=== PATIENT | male | born 1940 | race Caucasian/White ===

== ENCOUNTER → 2019-01-18 | Outpatient (CLI) | payer MEDICARE ==
[2015-07-18 12:55] VITALS: BP 138/75
[~2019-01-18] MED LIST: AMLO5TAB10 PO; ASPI1TAB88 PO; ASPI325T11 PO; ATOR10TA60 PO; LOSA100T14 PO; MELO15TA23 PO; METO25TA4 PO; REGADENOSON 0.4 MG/5 ML DISP.SYRIN. IV ONE
--- NOTE | 2019-01-18 13:48 | RAD ---
MR#: [id number] Date of Study: 01/18/2019 Ordering Physician: YOLIE GONZALEZ, Referring Physician: ZINA CROCKER Tech: SELENE Lucero, ARRT (R) (N) APPROVED REPORT Test Type: Pharmacological Stress Nurse/Tech: Rissa Stack RN Test Indications: CAD Cardiac History: Hypertension, Diabetes, CABG x5, [place] 2016,smoker Medications: See Electronic Medical Record Medical History: See Electronic Medical Record Resting ECG: SB Resting Heart Rate: 42 bpm Resting Blood Pressure: 135/51mmHg Pretest Chest Pain: No chest pain Nurse/Tech Notes S1,S2 and lungs are diminished. Consent: The procedure was explained to the patient in lay terms. Informed consent was witnessed. Joe eout was entered into archify. History and Stress Test performed by RT Shereen (R) (N) Pharm. Details Pharmacologic stress testing was performed using 0.4mg per 5ml of regadenoson given intravenously ove r 7-10 seconds. Stress Symptoms No chest pain or symptoms. POST EXERCISE Reason for Termination: Infusion complete Target HR: No Max HR: 67 bpm Max Blood Pressure: 124/39mmHg Blood Pressure response to exercise: Normal blood pressure response during stress. Heart Rate response to exercise: WNL Chest Pain: No. Arrhythmia: No. INTERPRETATION Stress EKG Conclusion: The resting EKG shows a sinus bradycardia and nonspecific ST-T wave changes. The stress EKG shows no significant changes from baseline. No EKG evidence of stressed induced ischemia. Imaging Protocol IMAGE PROTOCOL: Rest Tc-99m/stress Tc-99m 1 day Rest: Stress: Viability: Radiopharm.Tc99m PtanbtnqqCy87a Sestamibi Dose9.9mCi 31mCi Img Date 01/18/2019 01/18/2019 Inj-Img Ywzk02shj. 60min. Rest Admin Site:IV - Right AntecubitalAdministrator:RT Shereen (Kaley)(N) Stress Admin Site: IV - Right AntecubitalAdministrator: RT Shereen (Kaley)(N) STRESS DATA End Diast. Vol.130.0mlLVEDV index BSA62.0ml End Syst. Vol.51.0mlLVESV index BSA24.0ml Myocardial Qebu239.0gEject. Gqkikroa75.0% Stress Scores Regional WT0.00Summed WT15.00 Regional WM0.00Summed WM9.00 LV Perfusion The stress scans show slight anterior septal wall thinning. The rest scans show slight anterior septal wall thinning. Nuclear imaging shows no significant reversible ischemia. Nuclear imaging shows a slight fixed area of anterior septal wall thinning possibly due to a technica l artifact. Wall Motion Ventricular systolic function is intact with no regional wall motion abnormalities and an ejection fr action of 63%. LV Perf. Quant 17 Seg. SSS5.00 17 Seg. SRS4.00 17 Seg. SDS2.00 Stress Defect Extent (% LAD)0.00Rest Defect Extent (% LAD)5.00Rev. Defect Extent (% LAD)0.00 Stress Defect Extent (% LCX) 31.30Rest Defect Extent (% LCX)30.00Rev. Defect Extent (% LCX)7.50 Stress Defect Extent (% RCA)0.00Rest Defect Extent (% RCA)0.00Rev. Defect Extent (% RCA)0.00 Stress Defect Extent (% AGUSTINA)7.40Rest Defect Extent (% AGUSTINA)7.80Rev. Defect Extent (% AGUSTINA)3.00 Conclusion 1. No EKG evidence of stressed induced ischemia. 2. Nuclear imaging shows no reversible ischemia. 3. Nuclear imaging during shows slight fixed anterior septal wall thinning. 4. Normal left ventricular systolic function with an ejection fraction of 63%. 5. Moderately low risk Lexiscan nuclear stress test. Signed by : Yunier Yee MD Electronically Approved : 01/18/2019 13:48:02
--- NOTE | 2019-01-25 09:47 | RAD ---
MR#: [id number] Date of Study: 01/18/2019 Ordering Physician: YOLIE GONZALEZ, Referring Physician: YOLIE GONZALEZ, Tech: Arvin Gonzalez MBA, RDMS, RVT, RDCS, RTR APPROVED REPORT Patient Location: OUT-PATIENT Indications pad Duplex Results A/PTransverseLongitudinal Proximal Aorta 2.2cm1.9cm Mid Aorta 2.6cm1.9cm Distal Aorta 1.9cm1.4cm Rt. Common Iliac Artery1.4cm Lt. Common Iliac Artery 1.4cm Findings Grossly the aorta is noted to have mild diffuse plaque and calcification. No obvious aneurysm is iden tified. Normal velocities are noted. Critical Notification Critical Value: No <Conclusion> No evidence of abdominal aortic aneurysm. Signed by : Yolie Gonzalez, Electronically Approved : 01/25/2019 09:47:34
--- NOTE | 2019-01-25 09:50 | RAD ---
MR#: [id number] Date of Study: 01/18/2019 Ordering Physician: YOLIE GONZALEZ, Referring Physician: YOLIE GONZALEZ, Tech: Arvin Gonzalez MBA, RDMS, RVT, RDCS, RTR APPROVED REPORT Patient Location: OUT-PATIENT Laterality:Bilateral Indications Dizziness and Vertigo Doppler Spectral Velocity Analysis Right Left pCCA 110/19 cm/spCCA 118/17 cm/s mCCA 93/14 cm/smCCA 80/15 cm/s dCCA 73/15 cm/sdCCA 75/17 cm/s Bulb 73/19 cm/sBulb 61/19 cm/s ECA 100/ cm/sECA 89/ cm/s pICA 67/18 cm/spICA 70/21 cm/s [place] 70/21 cm/smICA 71/15 cm/s dICA 78/25 cm/sdICA 87/23 cm/s Vert. 42/ cm/sVert. 50/ cm/s Subcl. 109/ cm/sSubcl. 96/ cm/s ICA/CCA 0.71ICA/CCA 0.74 Findings Grayscale images of the bilateral common carotid arteries, external and internal carotid vessels demo nstrate mild diffuse intimal hyperplasia with moderate calcific circumferential plaque. Based on spectral waveforms and color Doppler there is no obvious evidence of significant stenosis. O verall 0 to less than 50% stenosis based on velocity criteria. Vertebral velocities are within normal limits. Critical Notification Critical Value: No <Conclusion> No significant evidence of carotid occlusive disease bilaterally. Signed by : Yolie Gonzalez, Electronically Approved : 01/25/2019 09:50:39
== END | disposition home or self-care (01) ==
LOC: NM 07:51
PROVIDERS: ATTEND Internal Medicine Cardiovascular Disease
DX: I65.23 Occlusion and stenosis of bilateral carotid arteries (principal); I77.3 Arterial fibromuscular dysplasia; I70.0 Atherosclerosis of aorta; R00.1 Bradycardia, unspecified; I25.10 Atherosclerotic heart disease of native coronary artery without angina pectoris; I73.9 Peripheral vascular disease, unspecified; I10 Essential (primary) hypertension; E11.9 Type 2 diabetes mellitus without complications; I25.2 Old myocardial infarction; F17.290 Nicotine dependence, other tobacco product, uncomplicated; Z95.1 Presence of aortocoronary bypass graft; Z79.01 Long term (current) use of anticoagulants
CPT/HCPCS: 76770; 78452; 93017; 93880; A9500; J2785

== ENCOUNTER → 2019-01-19 | Outpatient (CLI) | payer MEDICARE ==
[2015-07-18 12:55] VITALS: BP 138/75
[~2019-01-19] MED LIST changes: -REGADENOSON 0.4 MG/5 ML DISP.SYRIN. IV ONE
[2019-01-19 09:37] LABS: ALBUMIN 3.6 g/dL (3.4-5.0); ALBUMIN/GLOBULIN RATIO 0.9 (1.0-1.7); CALCIUM 8.5 mg/dL (8.5-10.1); GFR 72.1; POTASSIUM 4.1 mmol/L (3.5-5.1); TOTAL BILIRUBIN 0.6 mg/dL (0.2-1.0); TOTAL PROTEIN 7.5 g/dL (6.4-8.2)
[2019-01-19 09:38] LABS: CHOLESTEROL/HDL RATIO 3.1
--- NOTE | 2019-01-19 11:29 | CARD ---
MR#: [id number] Date of Study: 01/19/2019 Ordering Physician: YOLIE GONZALEZ, Referring Physician: YOLIE GONZALEZ, Tech: Arabella Griffin APPROVED REPORT EXAM: Two-dimensional and M-mode echocardiogram with Doppler and color Doppler. Other Information Quality : AverageHR: 42bpm INDICATION Cardiac Disease: CAD Surgery/Intervention CABG: Date: 2015 RISK FACTORS Hypertension Smoking 2D DIMENSIONS Left Atrium(2D)4.5 (1.6-4.0cm)IVSd1.2 (0.7-1.1cm) Aortic Root(2D)3.4 (2.0-3.7cm)LVDd5.3 (3.9-5.9cm) LVOT Diameter2.2 (1.8-2.4cm)PWd1.1 (0.7-1.1cm) LVDs2.5 (2.5-4.0cm)FS (%) 53.2 % SV112.3 mlLVEF(%)83.9 (>50%) Aortic Valve AoV Peak Rayo.176.4cm/sAoV VTI40.2cm AO Peak GR.12.4mmHgLVOT Peak Rayo.109.7cm/s LVOT VTI 28.18cmAO Mean GR.7mmHg STU (VMAX)1.66bp5MAU (VTI)2.64cm2 Mitral Valve MV E Xyrpizoh17.6cm/sMV DECEL NMLA883cb MV A Skhztgzz08.5cm/sMV QUL02ql E/A Ratio1.9MVA (PHT)3.35cm2 TDI E/Lateral E'11.0E/Medial E'14.6 Pulmonary Valve PV Peak Qvhohbam55.9cm/sPV Peak Grad.3mmHg Tricuspid Valve TR P. Mcabrkvg889rd/sRAP DNQZICJL9iqRe TR Peak Gr.97qdPpVOUA79qzSi Pulmonary Vein S1 Fblyqwgp48.9cm/sD2 Eqlvuabh86.5cm/s PVa xxqurgat501qkam LEFT VENTRICLE The left ventricle is normal size. There is mild concentric left ventricular hypertrophy. The left ve ntricular systolic function is normal. The Ejection Fraction is 55-60%. There is normal LV segmental wall motion. The left ventricular diastolic function and filling is normal for age. RIGHT VENTRICLE The right ventricle is normal size. There is normal right ventricular wall thickness. The right ventr icular systolic function is normal. ATRIA The left atrium is borderline dilated. The right atrium is borderline dilated. The interatrial septum is intact with no evidence for an atrial septal defect or patent foramen ovale as noted on 2-D or Do ppler imaging. AORTIC VALVE The aortic valve is thickened but opens well. Doppler and Color Flow revealed no significant aortic r egurgitation. There is no significant aortic valvular stenosis. MITRAL VALVE The mitral valve is thickened but opens well. There is no evidence of mitral valve prolapse. There is no mitral valve stenosis. Doppler and Color-flow revealed trace mitral regurgitation. TRICUSPID VALVE The tricuspid valve is not well visualized. Doppler and Color Flow revealed trace tricuspid regurgita tion with an estimated PAP of 30 mmHg. There is no tricuspid valve stenosis. PULMONIC VALVE The pulmonic valve is not well visualized. Doppler and Color Flow revealed no pulmonic valvular regur gitation. GREAT VESSELS The aortic root is normal in size. The IVC is normal in size and collapses >50% with inspiration. PERICARDIAL EFFUSION There is no evidence of significant pericardial effusion. Critical Notification Critical Value: No <Conclusion> The left ventricular systolic function is normal. The Ejection Fraction is 55-60%. There is normal LV segmental wall motion. Trace mitral regurgitation. Trace tricuspid regurgitation with an estimated PAP of 30 mmHg. There is no evidence of significant pericardial effusion. Signed by : Steven Clark, Electronically Approved : 01/19/2019 11:29:07
== END | disposition home or self-care (01) ==
LOC: ECHO 08:50
PROVIDERS: ATTEND Internal Medicine Cardiovascular Disease
DX: I11.9 Hypertensive heart disease without heart failure (principal); I25.10 Atherosclerotic heart disease of native coronary artery without angina pectoris
CPT/HCPCS: 36415; 80053; 80061; 83721; 93306

== ENCOUNTER 2020-11-27 21:38 | Observation (INO) | payer BC, MEDICARE ==
[~2020-11-27] VITALS: Ht 177.8 cm; Wt 91.0 kg
[~2020-11-27 21:38] MED LIST changes: +AMLO-186 PO; -AMLO5TAB10 PO
--- NOTE | 2020-11-27 22:03 | PHYS DOC ---
Past Medical History Past Medical History: Hypertension, UTI Past Surgical History: No Surgical History Smoking Status: Current Every Day Smoker Alcohol Use: None Drug Use: None General Adult EDM: Chief Complaint: ALTERED MENTAL STATUS HPI: HPI: Patient is a 80 year old male presents emergency department with complaint of weakness, slurred speech, and altered mental status that started at approximately 2000 today lasting approximately 1 hour. Patient states he has been having these symptoms off and on for the past 6 months, has not had a work- up by a neurologist, sees Dr. Diehl for primary care, Dr. Patel for cardiology. Patient states he has had several episodes similar to this tonight however this 1 seemed to last the longest, patient's is at bedside stating she is concerned he might be having a stroke. Patient lives at home with his only. 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 Patient states he has not had an episode since. Patient denies any shortness of breath, chest palpitations, chest pains, cough or congestion, fever or chills. Patient reports a NC with 5 vessel bypass in 2016. States he takes atorvastatin, metoprolol, amlodipine daily. Denies any allergies to medications. Patient reports he has not had the COVID-19 virus vaccination Review of Systems: Review of Systems: 14 body systems of review of systems have been reviewed. See HPI for pertinent positives and negative responses, otherwise all other systems are negative, nonpertinent or noncontributory. Constitutional: Negative except as outlined in HPI above. Skin: Negative except as outlined in HPI above. Eyes: Negative except as outlined in HPI above. HENT: Negative except as outlined in HPI above. Respiratory: Negative except as outlined in HPI above. Cardiovascular: Negative except as outlined in HPI above. GI: Negative except as outlined in HPI above. : Negative except as outlined in HPI above. Musculoskeletal: Negative except as outlined in HPI above. Integument: Negative except as outlined in HPI above. Neurologic: Negative except as outlined in HPI above. Endocrine: Negative except as outlined in HPI above. Lymphatic: Negative except as outlined in HPI above. Psychiatric: Negative except as outlined in HPI above. Heart Score: C/O Chest Pain: No Risk Factors: Risk Factors: DM, Current or recent (<one month) smoker, HTN, HLP, family history of CAD, obesity. Risk Scores: Score 0 - 3: 2.5% MACE over next 6 weeks - Discharge Home Score 4 - 6: 20.3% MACE over next 6 weeks - Admit for Clinical Observation Score 7 - 10: 72.7% MACE over next 6 weeks - Early Invasive Strategies Allergies: Allergies: Allergies Coded Allergies Type Severity Reaction Last Updated Verified No Known Drug Allergies 04/20/15 No Physical Exam: PE: Constitutional: Well developed, well nourished, no acute distress, non-toxic appearance. 80-year-old male in no apparent distress. HENT: Normocephalic, atraumatic, bilateral external ears normal, oropharynx moist, no oral exudates, nose normal. Bilateral TMs within normal limits, no drainage from bilateral external auditory canals. No drooling, no trismus, no lymphadenopathy of the head or neck appreciated, patient speaking in normal voice tones. Eyes: PERRLA, EOMI, conjunctiva normal, no discharge. Satisfactory 6 cardinal eye movements. Neck: Normal range of motion, no tenderness, supple, no stridor. No nuchal rigidity, no meningismus signs. Cardiovascular:Heart rate regular rhythm, no murmur, heart sounds S1-S2 regular rate and rhythm however rhythm is bradycardic during physical examination heart rate 56 bpm. No murmur appreciated. Lungs & Thorax: Bilateral breath sounds clear to auscultation all lung kahn, no adventitious lung sounds appreciated. There is a vertical well-healed scar along sternum. Abdomen: Bowel sounds normal, soft, no tenderness, no masses, no pulsatile masses. Skin: Warm, dry, no erythema, no rash. Back: No tenderness, no CVA tenderness. Extremities: No tenderness, no cyanosis, no clubbing, ROM intact, no edema. Neurologic: Alert and oriented X 3, normal motor function, normal sensory func tion, no focal deficits noted. Psychologic: Affect normal, judgement normal, mood normal. Current Patient Data: Labs: Laboratory Tests Test 11/27/20 21:52 11/27/20 22:05 11/27/20 22:10 Glucose (Fingerstick) 104 mg/dL Urine Collection Type Unknown Urine Color Yellow Urine Clarity Clear Urine pH 7.0 Urine Specific Hawkins 1.010 Urine Protein Negative mg/dL Urine Glucose (UA) Negative mg/dL Urine Ketones (Stick) Negative mg/dL Urine Blood Negative Urine Nitrite Negative Urine Bilirubin Negative Urine Urobilinogen Dipstick 0.2 mg/dL Urine Leukocyte Esterase Negative Urine RBC 0 /HPF Urine WBC 0 /HPF Urine Squamous Epithelial Cells Occ /LPF Urine Bacteria 0 /HPF White Blood Count 6.2 x10^3/uL Red Blood Count 4.13 x10^6/uL Hemoglobin 13.2 g/dL Hematocrit 38.6 % Mean Corpuscular Volume 93 fL Mean Corpuscular Hemoglobin 32 pg Mean Corpuscular Hemoglobin Concent 34 g/dL Red Cell Distribution Width 13.7 % Platelet Count 282 x10^3/uL Neutrophils (%) (Auto) 59 % Lymphocytes (%) (Auto) 26 % Monocytes (%) (Auto) 12 % Eosinophils (%) (Auto) 2 % Basophils (%) (Auto) 1 % Neutrophils # (Auto) 3.7 x10^3/uL Lymphocytes # (Auto) 1.6 x10^3/uL Monocytes # (Auto) 0.8 x10^3/uL Eosinophils # (Auto) 0.1 x10^3/uL Basophils # (Auto) 0.1 x10^3/uL Sodium Level 138 mmol/L Potassium Level 3.6 mmol/L Chloride Level 104 mmol/L Carbon Dioxide Level 29 mmol/L Anion Gap 5 Blood Urea Nitrogen 13 mg/dL Creatinine 1.0 mg/dL Estimated GFR (Cockcroft-Gault) 71.7 BUN/Creatinine Ratio 13 Glucose Level 96 mg/dL Calcium Level 8.9 mg/dL Phosphorus Level 2.9 mg/dL Magnesium Level 2.4 mg/dL Total Bilirubin 0.3 mg/dL Aspartate Amino Transf (AST/SGOT) 11 U/L Alanine Aminotransferase (ALT/SGPT) 16 U/L Alkaline Phosphatase 96 U/L Troponin I Quantitative < 0.017 ng/mL Total Protein 7.1 g/dL Albumin 3.3 g/dL Albumin/Globulin Ratio 0.9 Laboratory Tests Test 11/27/20 21:52 Glucose (Fingerstick) 104 mg/dL (70-99) H EKG: EKG: EKG performed at 2148 by ED nursing staff shows a sinus bradycardia without ectopy, heart rate 53 bpm, IA interval 0.138, QTc interval 0.396, no acute STEMI, no ACS, no acute ischemia appreciated, EKG interpreted by ED attending physician Dr. Leblanc. Radiology/Procedures: Radiology/Procedures: PATIENT: LORENZO DONALD ACCOUNT: [id number] : 1940 LOCATION: ER AGE: 80 SEX: M EXAM STATUS: REG ER ORD. PHYSICIAN: JAQUAN CHEN APRN REASON: altered mental status PROCEDURE: CT HEAD WO CONTRAST CT HEAD/BRAIN WO Date: 11/27/2020 10:50 PM Clinical Indication: altered mental status Comparison: None. Technique: 5 mm axial tomographic images were obtained of the head without contrast. These were viewed on brain and bone windows. One or more of the following dose reduction techniques were utilized: Automated exposure control (AEC), Adjustment of mA and/or kV according to patient size, Use of iterative reconstruction technique such as ASiR, CT scan done according to ALARA and image gently/image wisely Findings: Mild generalized cerebral and cerebellar volume loss. Mild nonspecific periventricular hypoattenuation, most commonly seen with chronic small vessel ischemic disease. Calcified atherosclerosis of the bilateral cavernous and paraclinoid internal carotid arteries and intracranial vertebral arteries. No intra- or extra-axial mass or fluid collection. No acute hemorrhage. The ventricles are normal in size, shape, and morphology. The salas-white matter junction is normal. The subarachnoid cisterns are patent. The visualized paranasal sinuses are normal. The visualized portions of the orbits and globes are normal. The mastoid air cells are clear. The synchronous motor assembler topogram shows no lytic lesion or fracture. Impression: No acute intracranial process. Mild cerebral volume loss. Mild chronic small vessel ischemic disease. Electronically signed by: Peter Parnell MD (11/27/2020 11:06 PM) [facility] DICTATED and SIGNED BY: PETER PARNELL MD DATE: 11/27/20 [id number] PATIENT: LORENZO DONALD ACCOUNT: [id number] : 1940 LOCATION: ER AGE: 80 SEX: M EXAM STATUS: REG ER ORD. PHYSICIAN: JAQUAN CHEN APRN REASON: altered mental status PROCEDURE: CHEST AP ONLY Exam: Chest one view INDICATION: Altered mental status TECHNIQUE: Frontal view of the chest Comparisons: None FINDINGS: Sternotomy wires are noted. Heart is mildly enlarged. Pulmonary vessels are within normal limits. The lung and pleural spaces are clear. IMPRESSION: No acute pulmonary process. Electronically signed by: Nata Brito MD (11/27/2020 11:01 PM) [facility] DICTATED and SIGNED BY: NATA BRITO MD DATE: 11/27/20 [id number] Course & Med Decision Making: Course & Med Decision Making Pertinent Labs and Imaging studies reviewed. (See chart for details) 80-year-old male, vital signs reviewed, presents to the emergency department chief complaint of altered mental status, periods of confusion, weakness, slurred speech. Symptoms resolved prior to arrival to the emergency department. Patient and patient's reveal similar symptoms have been off and on for the past 6 months. Patient has not had a neurological work-up by a neurologist. Physical examination unremarkable however patient's description of events concerning for TIA versus other neurological process. Will order cardiac work- up, CBC, CMP, CT head without contrast. Patient's labs unremarkable, EKG unremarkable, cardiac enzymes negative, CT nonconcerning for stroke or other acute process. Patient's ED NIHSS score 0. Discussed with patient related to similar symptoms over the past 6 months without neurological work-up have recommended [facility] with neurological consult for tomorrow, patient is amenable to this plan. Discussed patient case and ED work-up with ED attending physician Dr. Leblanc who agrees patient presentation and case warrants admission to hospitalist. Patient will be admitted to Dr. Lara who will come to the emergency department and evaluate patient for admission and further care, neurological consult with Dr. Cole. Patient will be admitted to med telemetry unit at [facility]. [place] Disclaimer: Ifrah Disclaimer: This electronic medical record was generated, in whole or in part, using a voice recognition dictation system. NIHSS Stroke Scale NIH Stroke Scale: NIH Stroke Scale Response (Comments) Value Level of Consciousness: 0 Alert/Responsive 0 LOC Questions: 0 Answers both correctly 0 LOC Commands: 0 Performs both tasks 0 Best Gaze: 0 Normal 0 Visual: 0 No visual loss 0 Facial Palsy: 0 Normal, symmetrical 0 Motor - Left Arm 0 No drift 0 Motor - Right Arm 0 No drift 0 Motor - Left Leg 0 No drift 0 Motor: Right Leg 0 No drift 0 Limb Ataxia: 0 Absent 0 Sensory: 0 No loss 0 Best Language: 0 Normal 0 Dysathria: 0 Normal 0 Extinction and Inattention: 0 Normal 0 Total 0 Departure Departure Impression: Primary Impression: TIA (transient ischemic attack) Additional Impressions: Altered mental status Qualified Codes: R41.82 - Altered mental status, unspecified Slurred speech Weakness Disposition: ADMITTED INPATIENT Admitting Physician: HIMS (Admit to Dr. Lara to [facility] telemetry unit, Dr. Cole consulting for neurology) Condition: STABLE Referrals: KEERTHI DIEHL MD (PCP) JAQUAN CHEN APRN Nov 27, 2020 22:03
[2020-11-27 22:29] LABS: BASO # 0.1 x10^3/uL (0.0-0.2); BASO % 1 % (0-3); EOS # 0.1 x10^3/uL (0.0-0.7); EOS % 2 % (0-3); HEMATOCRIT 38.6 % (39.0-53.0); HEMOGLOBIN 13.2 g/dL (13.0-17.5); LYMPH # 1.6 x10^3/uL (1.0-4.8); LYMPH % 26 % (24-48); MEAN CORPUSCULAR HEMOGLOBIN 32 pg (25-35); MEAN CORPUSCULAR HGB CONC 34 g/dL (31-37); MEAN CORPUSCULAR VOLUME 93 fL (79-100); MONO # 0.8 x10^3/uL (0.0-1.1); MONO % 12 % (0-9); NEUT # 3.7 x10^3/uL (1.8-7.7); NEUT % 59 % (31-73); PLATELET COUNT 282 x10^3/uL (140-400); RED BLOOD COUNT 4.13 x10^6/uL (4.30-5.70); RED CELL DISTRIBUTION WIDTH 13.7 % (11.5-14.5); WHITE BLOOD COUNT 6.2 x10^3/uL (4.0-11.0)
[2020-11-27 22:31] LABS: BILIRUBIN,URINE NEGATIVE (NEG); CLARITY,URINE CLEAR; COLOR,URINE YELLOW; NITRITE,URINE NEGATIVE (NEG); PROTEIN,URINE NEGATIVE (NEG-TRACE); UROBILINOGEN,URINE 0.2 mg/dL (0.2 mg/dL)
--- NOTE | 2020-11-27 22:34 | EKG ---
[facility] [address] [place] [address] Test Date: 2020-11-27 Test Time: 21:48:18 Pat Name: LORENZO DONALD Department: Room: Gender: M Teenage Program Director: : 1940 Requested By: JAQUAN CHEN Order Number: [id number] Reading MD: Measurements Intervals [place] Rate: 53 P: -49 WA: 138 QRS: -23 QRSD: 94 T: 36 QT: 420 QTc: 396 Interpretive Statements SINUS RHYTHM LEFTWARD AXIS NO SPECIFIC ECG ABNORMALITIES RI6.01 No previous ECG available for comparison
[2020-11-27 22:36] LABS: BACTERIA,URINE 0 /HPF (0-FEW); RBC,URINE 0 /HPF (0-2); WBC,URINE 0 /HPF (0-4)
[2020-11-27 22:41] LABS: CALCIUM 8.9 mg/dL (8.5-10.1); GFR 71.7; POTASSIUM 3.6 mmol/L (3.5-5.1)
[2020-11-27 22:47] LABS: ALBUMIN 3.3 g/dL (3.4-5.0); ALBUMIN/GLOBULIN RATIO 0.9 (1.0-1.7); MAGNESIUM 2.4 mg/dL (1.8-2.4); PHOSPHORUS 2.9 mg/dL (2.6-4.7); TOTAL BILIRUBIN 0.3 mg/dL (0.2-1.0); TOTAL PROTEIN 7.1 g/dL (6.4-8.2)
--- NOTE | 2020-11-27 23:04 | RAD ---
Exam: Chest one view INDICATION: Altered mental status TECHNIQUE: Frontal view of the chest Comparisons: None FINDINGS: Sternotomy wires are noted. Heart is mildly enlarged. Pulmonary vessels are within normal limits. The lung and pleural spaces are clear. IMPRESSION: No acute pulmonary process. Electronically signed by: Nata Cruz MD (11/27/2020 11:01 PM) [facility]
--- NOTE | 2020-11-27 23:08 | RAD ---
CT HEAD/BRAIN WO Date: 11/27/2020 10:50 PM Clinical Indication: altered mental status Comparison: None. Technique: 5 mm axial tomographic images were obtained of the head without contrast. These were view ed on brain and bone windows. One or more of the following dose reduction techniques were utilized: A utomated exposure control (AEC), Adjustment of mA and/or kV according to patient size, Use of iterati ve reconstruction technique such as ASiR, CT scan done according to ALARA and image gently/image calloway ly Findings: Mild generalized cerebral and cerebellar volume loss. Mild nonspecific periventricular hypoattenuatio n, most commonly seen with chronic small vessel ischemic disease. Calcified atherosclerosis of the bi lateral cavernous and paraclinoid internal carotid arteries and intracranial vertebral arteries. No intra- or extra-axial mass or fluid collection. No acute hemorrhage. The ventricles are normal in size, shape, and morphology. The salas-white matter junction is normal. The subarachnoid cisterns are patent. The visualized paranasal sinuses are normal. The visualized portions of the orbits and globes are no rmal. The mastoid air cells are clear. The clinical transformation specialist topogram shows no lytic lesion or fracture. Impression: No acute intracranial process. Mild cerebral volume loss. Mild chronic small vessel ischemic disease. Electronically signed by: Jose Francisco Jones MD (11/27/2020 11:06 PM) [facility]
--- NOTE | 2020-11-28 06:25 | PDOC1 ---
History and Physical Date of Admission Date of Admission DATE: 11/28/20 TIME: 06:22 Identification/Chief Complaint Chief Complaint Weakness Source Source: Chart review, Patient History of Present Illness History of Present Illness Patient is a 80-year-old male with past medical history UT, who presents to the ED with complaints of slurred speech, global weakness, and altered mental status that began last night around 1999.. Patient states these symptoms have been intermittent over the past 6 months and spontaneously resolve, but most recent episode seems to have the lasted the longest. He did have a similar episode several weeks ago that was secondary to urinary tract infection, which was treated with Augmentin. He lives at home with his , and at the time of my evaluation states he feels his symptoms have resolved. He smokes cigars regularly, and denies any family history of CVA or TIA. Labs on admission showed CBG 104, and troponin <0.017, UA negative. Chest x-ray showed no acute process, and CT head showed mild cerebral volume loss and mild chronic small vessel ischemic disease. Will admit patient for further medical management. Past Medical History Cardiovascular: HTN, UT Past Surgical History Past Surgical History: CABG Family History Family History: Family History Unknown Social History Smoke: <1 pack per day ALCOHOL: rare Drugs: None Current Problem List Problem List Problems Medical Problems: (1) Altered mental status Status: Acute (2) Slurred speech Status: Acute (3) TIA (transient ischemic attack) Status: Acute (4) Weakness Status: Acute Current Medications Current Medications Active Scripts Active Atorvastatin Calcium 10 Mg Tablet 10 Mg PO HS Metoprolol Tartrate 25 Mg Tablet 25 Mg PO BID Aspirin Ec (Aspirin) 325 Mg Tablet. 325 Mg PO DAILYWBKFT Reported Amlodipine Besylate 5 Mg Tablet 5 Mg PO DAILY Allergies Allergies: Coded Allergies: No Known Drug Allergies (Unverified , 04/20/15) ROS Review of System GENERAL: Weakness. No history of weight change or fevers. SKIN: No bruising, hair changes or rashes. EYES: No blurred, double or loss of vision. NOSE AND THROAT: No history of nosebleeds, hoarseness or sore throat. HEART: Denies chest pain, denies palpitations. LUNGS: Denies cough, hemoptysis, wheezing or shortness of breath. GASTROINTESTINAL: Denies nausea, vomiting, abdominal pain. GENITOURINARY: Denies dysuria, frequency, urgency, hematuria. NEUROLOGIC: Slurred speech denies history of numbness, tingling, or tremor PSYCHIATRIC: Denies anxiety, denies depression. ENDOCRINE: No history of heat or cold intolerance, polyuria or polydipsia. EXTREMITIES: Denies muscle weakness, joint pain, pain on walking or stiffness. Physical Exam Physical Exam General: Alert, Oriented X3, Cooperative, No acute distress HEENT: PERRLA, EOMI Lungs: Clear to auscultation, Normal air movement Heart: RRR, no murmurs. Midline sternotomy scar. Cardiovascular: S1, S2 Abdomen: Normal bowel sounds, Soft, No tenderness Extremities: No clubbing, No cyanosis Skin: No rashes, No significant lesion Neuro: Normal speech, Normal tone, Sensation intact Psych/Mental Status: Mental status NL, Mood NL Vitals Vitals Vital Signs Date Time Temp Pulse Resp B/P (MAP) Pulse Ox O2 Delivery O2 Flow Rate FiO2 11/28/20 04:39 97.9 56 12 164/70 (101) 98 Room Air 97.9 Labs Labs Laboratory Tests Test 11/27/20 21:52 11/27/20 22:05 11/27/20 22:10 Glucose (Fingerstick) 104 mg/dL (70-99) Urine Collection Type Unknown Urine Color Yellow Urine Clarity Clear Urine pH 7.0 (<5.0-8.0) Urine Specific [place] 1.010 (1.000-1.030) Urine Protein Negative mg/dL (NEG-TRACE) Urine Glucose (UA) Negative mg/dL (NEG) Urine Ketones (Stick) Negative mg/dL (NEG) Urine Blood Negative (NEG) Urine Nitrite Negative (NEG) Urine Bilirubin Negative (NEG) Urine Urobilinogen Dipstick 0.2 mg/dL (0.2 mg/dL) Urine Leukocyte Esterase Negative (NEG) Urine RBC 0 /HPF (0-2) Urine WBC 0 /HPF (0-4) Urine Squamous Epithelial Cells Occ /LPF Urine Bacteria 0 /HPF (0-FEW) White Blood Count 6.2 x10^3/uL (4.0-11.0) Red Blood Count 4.13 x10^6/uL (4.30-5.70) Hemoglobin 13.2 g/dL (13.0-17.5) Hematocrit 38.6 % (39.0-53.0) Mean Corpuscular Volume 93 fL (79-100) Mean Corpuscular Hemoglobin 32 pg (25-35) Mean Corpuscular Hemoglobin Concent 34 g/dL (31-37) Red Cell Distribution Width 13.7 % (11.5-14.5) Platelet Count 282 x10^3/uL (140-400) Neutrophils (%) (Auto) 59 % (31-73) Lymphocytes (%) (Auto) 26 % (24-48) Monocytes (%) (Auto) 12 % (0-9) Eosinophils (%) (Auto) 2 % (0-3) Basophils (%) (Auto) 1 % (0-3) Neutrophils # (Auto) 3.7 x10^3/uL (1.8-7.7) Lymphocytes # (Auto) 1.6 x10^3/uL (1.0-4.8) Monocytes # (Auto) 0.8 x10^3/uL (0.0-1.1) Eosinophils # (Auto) 0.1 x10^3/uL (0.0-0.7) Basophils # (Auto) 0.1 x10^3/uL (0.0-0.2) Sodium Level 138 mmol/L (136-145) Potassium Level 3.6 mmol/L (3.5-5.1) Chloride Level 104 mmol/L (98-107) Carbon Dioxide Level 29 mmol/L (21-32) Anion Gap 5 (6-14) Blood Urea Nitrogen 13 mg/dL (8-26) Creatinine 1.0 mg/dL (0.7-1.3) Estimated GFR (Cockcroft-Gault) 71.7 BUN/Creatinine Ratio 13 (6-20) Glucose Level 96 mg/dL (70-99) Calcium Level 8.9 mg/dL (8.5-10.1) Phosphorus Level 2.9 mg/dL (2.6-4.7) Magnesium Level 2.4 mg/dL (1.8-2.4) Total Bilirubin 0.3 mg/dL (0.2-1.0) Aspartate Amino Transf (AST/SGOT) 11 U/L (15-37) Alanine Aminotransferase (ALT/SGPT) 16 U/L (16-63) Alkaline Phosphatase 96 U/L (46-116) Troponin I Quantitative < 0.017 ng/mL (0.000-0.055) Total Protein 7.1 g/dL (6.4-8.2) Albumin 3.3 g/dL (3.4-5.0) Albumin/Globulin Ratio 0.9 (1.0-1.7) Laboratory Tests Test 11/27/20 21:52 11/27/20 22:05 11/27/20 22:10 Glucose (Fingerstick) 104 mg/dL (70-99) Urine Collection Type Unknown Urine Color Yellow Urine Clarity Clear Urine pH 7.0 (<5.0-8.0) Urine Specific [place] 1.010 (1.000-1.030) Urine Protein Negative mg/dL (NEG-TRACE) Urine Glucose (UA) Negative mg/dL (NEG) Urine Ketones (Stick) Negative mg/dL (NEG) Urine Blood Negative (NEG) Urine Nitrite Negative (NEG) Urine Bilirubin Negative (NEG) Urine Urobilinogen Dipstick 0.2 mg/dL (0.2 mg/dL) Urine Leukocyte Esterase Negative (NEG) Urine RBC 0 /HPF (0-2) Urine WBC 0 /HPF (0-4) Urine Squamous Epithelial Cells Occ /LPF Urine Bacteria 0 /HPF (0-FEW) White Blood Count 6.2 x10^3/uL (4.0-11.0) Red Blood Count 4.13 x10^6/uL (4.30-5.70) Hemoglobin 13.2 g/dL (13.0-17.5) Hematocrit 38.6 % (39.0-53.0) Mean Corpuscular Volume 93 fL (79-100) Mean Corpuscular Hemoglobin 32 pg (25-35) Mean Corpuscular Hemoglobin Concent 34 g/dL (31-37) Red Cell Distribution Width 13.7 % (11.5-14.5) Platelet Count 282 x10^3/uL (140-400) Neutrophils (%) (Auto) 59 % (31-73) Lymphocytes (%) (Auto) 26 % (24-48) Monocytes (%) (Auto) 12 % (0-9) Eosinophils (%) (Auto) 2 % (0-3) Basophils (%) (Auto) 1 % (0-3) Neutrophils # (Auto) 3.7 x10^3/uL (1.8-7.7) Lymphocytes # (Auto) 1.6 x10^3/uL (1.0-4.8) Monocytes # (Auto) 0.8 x10^3/uL (0.0-1.1) Eosinophils # (Auto) 0.1 x10^3/uL (0.0-0.7) Basophils # (Auto) 0.1 x10^3/uL (0.0-0.2) Sodium Level 138 mmol/L (136-145) Potassium Level 3.6 mmol/L (3.5-5.1) Chloride Level 104 mmol/L (98-107) Carbon Dioxide Level 29 mmol/L (21-32) Anion Gap 5 (6-14) Blood Urea Nitrogen 13 mg/dL (8-26) Creatinine 1.0 mg/dL (0.7-1.3) Estimated GFR (Cockcroft-Gault) 71.7 BUN/Creatinine Ratio 13 (6-20) Glucose Level 96 mg/dL (70-99) Calcium Level 8.9 mg/dL (8.5-10.1) Phosphorus Level 2.9 mg/dL (2.6-4.7) Magnesium Level 2.4 mg/dL (1.8-2.4) Total Bilirubin 0.3 mg/dL (0.2-1.0) Aspartate Amino Transf (AST/SGOT) 11 U/L (15-37) Alanine Aminotransferase (ALT/SGPT) 16 U/L (16-63) Alkaline Phosphatase 96 U/L (46-116) Troponin I Quantitative < 0.017 ng/mL (0.000-0.055) Total Protein 7.1 g/dL (6.4-8.2) Albumin 3.3 g/dL (3.4-5.0) Albumin/Globulin Ratio 0.9 (1.0-1.7) Images Images PATIENT: LORENZO DONALD ACCOUNT: [id number] : 1940 LOCATION: ER AGE: 80 SEX: M EXAM STATUS: REG ER ORD. PHYSICIAN: JAQUAN CHEN APRN REASON: altered mental status PROCEDURE: CT HEAD WO CONTRAST CT HEAD/BRAIN WO Date: 11/27/2020 10:50 PM Clinical Indication: altered mental status Comparison: None. Technique: 5 mm axial tomographic images were obtained of the head without contrast. These were viewed on brain and bone windows. One or more of the following dose reduction techniques were utilized: Automated exposure control (AEC), Adjustment of mA and/or kV according to patient size, Use of iterative reconstruction technique such as ASiR, CT scan done according to ALARA and image gently/image wisely Findings: Mild generalized cerebral and cerebellar volume loss. Mild nonspecific periventricular hypoattenuation, most commonly seen with chronic small vessel ischemic disease. Calcified atherosclerosis of the bilateral cavernous and paraclinoid internal carotid arteries and intracranial vertebral arteries. No intra- or extra-axial mass or fluid collection. No acute hemorrhage. The ventricles are normal in size, shape, and morphology. The salas-white matter junction is normal. The subarachnoid cisterns are patent. The visualized paranasal sinuses are normal. The visualized portions of the orbits and globes are normal. The mastoid air cells are clear. The cut off machine helper topogram shows no lytic lesion or fracture. Impression: No acute intracranial process. Mild cerebral volume loss. Mild chronic small vessel ischemic disease. PATIENT: LORENZO DONALD ACCOUNT: [id number] : 1940 LOCATION: ER AGE: 80 SEX: M EXAM STATUS: REG ER ORD. PHYSICIAN: JAQUAN CHEN APRN REASON: altered mental status PROCEDURE: CHEST AP ONLY Exam: Chest one view INDICATION: Altered mental status TECHNIQUE: Frontal view of the chest Comparisons: None FINDINGS: Sternotomy wires are noted. Heart is mildly enlarged. Pulmonary vessels are within normal limits. The lung and pleural spaces are clear. IMPRESSION: No acute pulmonary process. VTE Prophylaxis Ordered VTE Prophylaxis Devices: No VTE Pharmacological Prophylaxi: Yes Assessment/Plan Assessment/Plan TIA History UT HTN HLD Plan: Will place consultation to neurology Lipid panel, vitamin B12 pending Resume home medications FEN - Cardiac diet PPX - Lovenox FULL CODE Dispo - inpatient for above Advance Care Planning: Total time spent [id number] with patient 16 minutes in discussion with goals of care, comfort care, end-of-life care, pain management, code status; patient names is (Mariela Donald) as surrogate decision- maker. Justifications for Admission Other Justification HYUN ROJAS MD Nov 28, 2020 06:25
[2020-11-28] MEDS ORDERED: hydrALAZINE 20 MG/ML VIAL. IVP PRN (06:30)
[2020-11-28] MEDS ORDERED: CALCIUM CARBONATE 500 MG TAB.CHEW PO PRN (06:45)
[2020-11-28] MEDS ORDERED: MAGNESIUM HYDROXIDE 2,400 MG/30 ML ORAL.SUSP. PO PRN (06:45)
[2020-11-28] MEDS ORDERED: MAG HYDROX/ALUMINUM HYD/SIMETH 30 ML ORAL.SUSP PO PRN (06:45)
[2020-11-28] MEDS ORDERED: HYDROcodone/APAP 5/325MG 1 TAB TABLET PO PRN (06:45)
[2020-11-28] MEDS ORDERED: ACETAMINOPHEN 325 MG TABLET. PO PRN (06:45)
[2020-11-28] MEDS ORDERED: ZOLPIDEM 5 MG TABLET. PO PRN (06:45)
[2020-11-28] MEDS ORDERED: ONDANSETRON PF 4 MG/2 ML VIAL. IVP PRN (06:45)
[2020-11-28 08:26] LABS: CHOLESTEROL/HDL RATIO 3.4
[2020-11-28] MEDS ORDERED: METOPROLOL TART IMMED RELEASE 25 MG TABLET. PO SCH (09:00)
[2020-11-28] MEDS: ASPIRIN ENTERIC COATED 325 MG TABLET.DR. PO SCH (09:29)
[2020-11-28] MEDS: ENOXAPARIN 40 MG/0.4 ML SYRINGE. SQ SCH (09:31)
--- NOTE | 2020-11-28 11:52 | PDOC2 ---
NEUROLOGY CONSULT Date of Service DOS: Report Dictated Possible stroke. Nomcompliant with aspirin. Will order carotid Doppler, echocardiography, and brain MRI. Aspirin already resumed. May dismiss if work up negative. Can evaluate for dementia as out patient. DATE: 11/28/20 TIME: 11:46 Current Medications Current Medications Current Medications Amlodipine Besylate (Norvasc) 5 mg DAILY PO Last administered on 11/28/20at 09:30; Start 11/28/20 at 09:00 Aspirin (Ecotrin) 325 mg DAILYWBKFT PO Last administered on 11/28/20at 09:29; Start 11/28/20 at 08:00 Atorvastatin Calcium (Lipitor) 10 mg HS PO ; Start 11/28/20 at 21:00 Metoprolol Tartrate (Lopressor) 25 mg BID PO Last administered on 11/28/20at 09:31; Start 11/28/20 at 09:00 Hydralazine HCl (Apresoline Inj) 10 mg PRN Q4HRS PRN IVP ELEVATED BP, SEE COMMENTS; Start 11/28/20 at 06:30 Ondansetron HCl (Zofran) 4 mg PRN Q6HRS PRN IVP NAUSEA/VOMITING 1ST CHOICE; Start 11/28/20 at 06:45 Al Hydroxide/Mg Hydroxide (Mylanta Plus Xs) 30 ml PRN Q3HRS PRN PO HEARTBURN / GAS; Start 11/28/20 at 06:45 Calcium Carbonate/ Glycine (Tums) 500 mg PRN Q3HRS PRN PO UPSET STOMACH; Start 11/28/20 at 06:45 Zolpidem Tartrate (Ambien) 5 mg PRN QHS PRN PO INSOMNIA, MAY REPEAT IN 1HR; Start 11/28/20 at 06:45 Acetaminophen/ Hydrocodone Bitart (Lortab 5/325) 1 tab PRN Q4HRS PRN PO MILD PAIN 1-3; Start 11/28/20 at 06:45 Acetaminophen (Tylenol) 650 mg PRN Q6HRS PRN PO Headaches, Temp > 101.5F; Start 11/28/20 at 06:45 Magnesium Hydroxide (Milk Of Magnesia) 2,400 mg PRN Q12HR PRN PO CONSTIPATION; Start 11/28/20 at 06:45 Enoxaparin Sodium (Lovenox 40mg Syringe) 40 mg Q24H SQ Last administered on 11/28/20at 09:31; Start 11/28/20 at 07:00 Active Scripts Active Atorvastatin Calcium 10 Mg Tablet 10 Mg PO HS Metoprolol Tartrate 25 Mg Tablet 25 Mg PO BID Aspirin Ec (Aspirin) 325 Mg Tablet. 325 Mg PO DAILYWBKFT Reported Amlodipine Besylate 5 Mg Tablet 5 Mg PO DAILY Allergies Allergies: Coded Allergies: No Known Drug Allergies (Unverified , 04/20/15) Vitals VITALS Vital Signs Date Time Temp Pulse Resp B/P (MAP) Pulse Ox O2 Delivery O2 Flow Rate FiO2 11/28/20 09:33 98.2 64 18 154/70 (98) 97 Room Air 98.2 Labs Labs Laboratory Tests Test 11/27/20 21:52 11/27/20 22:05 11/27/20 22:10 11/28/20 07:40 Glucose (Fingerstick) 104 mg/dL (70-99) Urine Collection Type Unknown Urine Color Yellow Urine Clarity Clear Urine pH 7.0 (<5.0-8.0) Urine Specific [place] 1.010 (1.000-1.030) Urine Protein Negative mg/dL (NEG-TRACE) Urine Glucose (UA) Negative mg/dL (NEG) Urine Ketones (Stick) Negative mg/dL (NEG) Urine Blood Negative (NEG) Urine Nitrite Negative (NEG) Urine Bilirubin Negative (NEG) Urine Urobilinogen Dipstick 0.2 mg/dL (0.2 mg/dL) Urine Leukocyte Esterase Negative (NEG) Urine RBC 0 /HPF (0-2) Urine WBC 0 /HPF (0-4) Urine Squamous Epithelial Cells Occ /LPF Urine Bacteria 0 /HPF (0-FEW) White Blood Count 6.2 x10^3/uL (4.0-11.0) Red Blood Count 4.13 x10^6/uL (4.30-5.70) Hemoglobin 13.2 g/dL (13.0-17.5) Hematocrit 38.6 % (39.0-53.0) Mean Corpuscular Volume 93 fL (79-100) Mean Corpuscular Hemoglobin 32 pg (25-35) Mean Corpuscular Hemoglobin Concent 34 g/dL (31-37) Red Cell Distribution Width 13.7 % (11.5-14.5) Platelet Count 282 x10^3/uL (140-400) Neutrophils (%) (Auto) 59 % (31-73) Lymphocytes (%) (Auto) 26 % (24-48) Monocytes (%) (Auto) 12 % (0-9) Eosinophils (%) (Auto) 2 % (0-3) Basophils (%) (Auto) 1 % (0-3) Neutrophils # (Auto) 3.7 x10^3/uL (1.8-7.7) Lymphocytes # (Auto) 1.6 x10^3/uL (1.0-4.8) Monocytes # (Auto) 0.8 x10^3/uL (0.0-1.1) Eosinophils # (Auto) 0.1 x10^3/uL (0.0-0.7) Basophils # (Auto) 0.1 x10^3/uL (0.0-0.2) Sodium Level 138 mmol/L (136-145) Potassium Level 3.6 mmol/L (3.5-5.1) Chloride Level 104 mmol/L (98-107) Carbon Dioxide Level 29 mmol/L (21-32) Anion Gap 5 (6-14) Blood Urea Nitrogen 13 mg/dL (8-26) Creatinine 1.0 mg/dL (0.7-1.3) Estimated GFR (Cockcroft-Gault) 71.7 BUN/Creatinine Ratio 13 (6-20) Glucose Level 96 mg/dL (70-99) Calcium Level 8.9 mg/dL (8.5-10.1) Phosphorus Level 2.9 mg/dL (2.6-4.7) Magnesium Level 2.4 mg/dL (1.8-2.4) Total Bilirubin 0.3 mg/dL (0.2-1.0) Aspartate Amino Transf (AST/SGOT) 11 U/L (15-37) Alanine Aminotransferase (ALT/SGPT) 16 U/L (16-63) Alkaline Phosphatase 96 U/L (46-116) Troponin I Quantitative < 0.017 ng/mL (0.000-0.055) Total Protein 7.1 g/dL (6.4-8.2) Albumin 3.3 g/dL (3.4-5.0) Albumin/Globulin Ratio 0.9 (1.0-1.7) Triglycerides Level 100 mg/dL (0-150) Cholesterol Level 149 mg/dL (0-200) LDL Cholesterol, Calculated 85 mg/dL (0-100) VLDL Cholesterol, Calculated 20 mg/dL (0-40) Non-HDL Cholesterol Calculated 105 mg/dL (0-129) HDL Cholesterol 44 mg/dL (40-60) Cholesterol/HDL Ratio 3.4 Vitamin B12 Level 281 pg/mL (247-911) Laboratory Tests Test 11/27/20 21:52 11/27/20 22:05 11/27/20 22:10 11/28/20 07:40 Glucose (Fingerstick) 104 mg/dL (70-99) Urine Collection Type Unknown Urine Color Yellow Urine Clarity Clear Urine pH 7.0 (<5.0-8.0) Urine Specific [place] 1.010 (1.000-1.030) Urine Protein Negative mg/dL (NEG-TRACE) Urine Glucose (UA) Negative mg/dL (NEG) Urine Ketones (Stick) Negative mg/dL (NEG) Urine Blood Negative (NEG) Urine Nitrite Negative (NEG) Urine Bilirubin Negative (NEG) Urine Urobilinogen Dipstick 0.2 mg/dL (0.2 mg/dL) Urine Leukocyte Esterase Negative (NEG) Urine RBC 0 /HPF (0-2) Urine WBC 0 /HPF (0-4) Urine Squamous Epithelial Cells Occ /LPF Urine Bacteria 0 /HPF (0-FEW) White Blood Count 6.2 x10^3/uL (4.0-11.0) Red Blood Count 4.13 x10^6/uL (4.30-5.70) Hemoglobin 13.2 g/dL (13.0-17.5) Hematocrit 38.6 % (39.0-53.0) Mean Corpuscular Volume 93 fL (79-100) Mean Corpuscular Hemoglobin 32 pg (25-35) Mean Corpuscular Hemoglobin Concent 34 g/dL (31-37) Red Cell Distribution Width 13.7 % (11.5-14.5) Platelet Count 282 x10^3/uL (140-400) Neutrophils (%) (Auto) 59 % (31-73) Lymphocytes (%) (Auto) 26 % (24-48) Monocytes (%) (Auto) 12 % (0-9) Eosinophils (%) (Auto) 2 % (0-3) Basophils (%) (Auto) 1 % (0-3) Neutrophils # (Auto) 3.7 x10^3/uL (1.8-7.7) Lymphocytes # (Auto) 1.6 x10^3/uL (1.0-4.8) Monocytes # (Auto) 0.8 x10^3/uL (0.0-1.1) Eosinophils # (Auto) 0.1 x10^3/uL (0.0-0.7) Basophils # (Auto) 0.1 x10^3/uL (0.0-0.2) Sodium Level 138 mmol/L (136-145) Potassium Level 3.6 mmol/L (3.5-5.1) Chloride Level 104 mmol/L (98-107) Carbon Dioxide Level 29 mmol/L (21-32) Anion Gap 5 (6-14) Blood Urea Nitrogen 13 mg/dL (8-26) Creatinine 1.0 mg/dL (0.7-1.3) Estimated GFR (Cockcroft-Gault) 71.7 BUN/Creatinine Ratio 13 (6-20) Glucose Level 96 mg/dL (70-99) Calcium Level 8.9 mg/dL (8.5-10.1) Phosphorus Level 2.9 mg/dL (2.6-4.7) Magnesium Level 2.4 mg/dL (1.8-2.4) Total Bilirubin 0.3 mg/dL (0.2-1.0) Aspartate Amino Transf (AST/SGOT) 11 U/L (15-37) Alanine Aminotransferase (ALT/SGPT) 16 U/L (16-63) Alkaline Phosphatase 96 U/L (46-116) Troponin I Quantitative < 0.017 ng/mL (0.000-0.055) Total Protein 7.1 g/dL (6.4-8.2) Albumin 3.3 g/dL (3.4-5.0) Albumin/Globulin Ratio 0.9 (1.0-1.7) Triglycerides Level 100 mg/dL (0-150) Cholesterol Level 149 mg/dL (0-200) LDL Cholesterol, Calculated 85 mg/dL (0-100) VLDL Cholesterol, Calculated 20 mg/dL (0-40) Non-HDL Cholesterol Calculated 105 mg/dL (0-129) HDL Cholesterol 44 mg/dL (40-60) Cholesterol/HDL Ratio 3.4 Vitamin B12 Level 281 pg/mL (247-911) CANDACE BLUM MD Nov 28, 2020 11:52
--- NOTE | 2020-11-28 14:11 | CONS ---
DATE OF CONSULTATION: 11/28/2020 REFERRING PHYSICIAN: Christo Lara MD REASON FOR CONSULTATION: Stroke. HISTORY OF PRESENT ILLNESS: The patient is an 80-year-old man who presented to the emergency room with slurred speech, global weakness and altered mental status, which began on 11/27/2020 at 2000. He had symptoms previously similar nature. He was recently hospitalized in and out in [place] and was found to have urinary tract infection. Symptoms lasted for several days as a urinary tract infection was treated. I do not have access to that investigation. His is concerned because this morning when he spoke with him on the phone, his speech seemed worse than when she brought him in. She entered just as I was evaluating the patient. She is concerned. He also has had some difficulty with short-term memory and general slowing of cognition. She reports that he was previously diagnosed with diabetes by his doctor in [place]. He was given a medication, but did not take it. She believes his blood sugars may be controlled by his diet. He does have risk factors for vascular disease with smoking. He also has a history of coronary artery disease and has undergone bypass surgery. He has not had any complaints of chest pain. He has not been taking his aspirin for the last month. PAST MEDICAL HISTORY: 1. Hypertension. 2. History of myocardial infarction. 3. Coronary artery bypass graft. 4. History of borderline diabetes. 5. History of possible transient ischemic attack or stroke. ALLERGIES: No known allergies to drugs. MEDICINES ON PRIOR ADMISSION: Amlodipine 5 mg, aspirin which he has not been taking, atorvastatin 10 mg, metoprolol 25 mg twice per day. FAMILY HISTORY: Unknown. SOCIAL HISTORY: He smokes cigars less than a pack a day. He rarely drinks alcohol and does not use recreational drugs. He is and lives with his . REVIEW OF SYSTEMS: He does not complain of any headache. He has had diminished hearing. He uses glasses for his vision. He has not noticed any acute change in vision. His has noticed some changes in cognition. He has been able to chew and swallow without choking. He does feel short of breath at times. There has been no chest or abdominal pain. He has some arthritic pain. He has not had fever or rash. He does not have any gastrointestinal complaints. He does have nocturia x 4. He has had numbness of his feet for quite some time. He has not had difficulty with walking or falls. He does not have any psychiatric concerns. PHYSICAL EXAMINATION: VITAL SIGNS: The blood pressure was 154/70, pulse 64, respirations 18, temperature 98.2 degrees Fahrenheit orally. Oximetry was 97% on room air. His weight was 93 kilograms, height 70 inches with a calculated body mass index of 29.4. NEUROLOGIC: He was alert, awake and cooperative. Speech appeared slightly dysarthric, but was fluent. Attention and concentration was intact. He appeared well groomed and well nourished. He was oriented. Examination of the cranial nerves revealed visual kahn were full to confrontation. Extraocular movements were intact. The eyes were conjugate. Pursuit movements were smooth and saccadic eye movements were without dysmetria. Pupils were 3 mm and reactive. Funduscopic exam did not reveal papilledema, exudate or hemorrhage. Facial sensation was intact. The muscles of mastication and facial expression were powerful symmetrically. Hearing was intact to finger rub. The palate arched symmetrically and the tongue was midline with full motion. Sternocleidomastoid and trapezius were powerful bilaterally. Muscle bulk and tone was normal. There was no arm or leg drift. Power was full and symmetric in the upper and lower extremities. Reflexes were 1/4 in the upper extremities and knees, absent at the ankles. Toes were downgoing. Coordination testing with [id number], heel to gutiérrez, fine motor and rapid alternating movements was well performed. Sensory examination was intact to pain, light touch, proprioception, graphesthesia, cold thermal and vibration except for distal sensory shading in third distal feet. Proprioception in the feet was still intact. He just had shading to sharp and cold. Light touch was also altered. There was no extinction to double simultaneous stimulation. He was able to stand and bear weight. He could take a few steps forward and backward. He could stand on heels or toes with balance support. Romberg stance was negative. Auscultation of the carotid arteries did not reveal a bruit. Heart rhythm was regular, without a murmur. Peripheral pulses well palpated in the right wrist, diminished in the left wrist and palpated in both feet. There was no edema or cyanosis of the extremities. LABORATORY RESULTS: CBC was performed on 11/27/2020 revealing a normal white blood cell count, hemoglobin and platelet count. Hematocrit was diminished at 38.6. Monocytes were increased to 12%. Chemistries were performed on 11/27/2020 revealing normal electrolytes. BUN and creatinine were normal with a GFR that calculated at 71.7. Glucose was normal. Calcium, phosphorus and magnesium were normal. The liver enzymes were not elevated. Albumin was low at 3.3. Troponin was not elevated. Fasting lipid profile was performed on 11/28/2020 revealing a total cholesterol of 149, triglycerides of 100, HDL was 44 and LDL 85. The cholesterol/HDL ratio was 3.4. B12 level was 281. Urinalysis was performed on 11/27/2020 and was negative. DIAGNOSTIC RESULTS: CT scan of the brain was performed without contrast on 11/27/2020 revealing no acute intracranial process. There was mild cerebral volume loss. There was mild chronic small vessel ischemic disease. Chest x-ray was performed 11/27/2020 revealing no acute pulmonary process. IMPRESSION: The patient is a pleasant 80-year-old man with dysarthric speech. He presented with generalized weakness according to his , but this seems to have improved. He has had some cognitive slowing. He did have urinary tract infection, which caused an encephalopathy. The current neurologic symptoms do not seem to be related to evidence of any underlying infection. I am concerned there may be an ischemic event. He has been noncompliant with his regimen of aspirin. RECOMMENDATIONS: The most recent carotid Doppler was 12/2019, so I feel this is worth repeating, so I will order carotid Doppler. We will also order an echocardiogram to look for an embolic source. We can order a hemoglobin A1c to see if he does actually have underlying diabetes that may be contributing to neuropathy. We will order an MRI brain to make sure there has not been an acute stroke. If studies are negative, he may be dismissed from a neurologic perspective. He should resume his aspirin. He should more carefully monitor his blood sugars and blood pressure. HORACIO/ABBY DR: Jalil TID: [id number] CC: TERRELL JOHNSON MD
--- NOTE | 2020-11-28 15:30 | RAD ---
EXAM: Bilateral carotid duplex with waveform analysis. CLINICAL HISTORY: Reason: stroke / Spl. Instructions: / History: . . TECHNIQUE: Longitudinal and transverse sonographic images of the bilateral carotid arteries was perfo rmed utilizing grayscale, color and spectral Doppler techniques. COMPARISON: None FINDINGS: Right Carotid: Mild atherosclerotic plaque. Left Carotid: Mild atherosclerotic plaque. Vertebrals: Antegrade flow bilaterally. Right Left PSV CCA (cm/s) 96 83 PSV ICA (cm/s) 73 89 EDV ICA (cm/s) 18 22 PSV ECA (cm/s) 108 102 ICA/CCA Ratio 0.87 1.1 IMPRESSION: Less than 50 percent stenosis of the internal carotid arteries bilaterally. Consensus Panel Almendarez-scale and Doppler US Criteria for Diagnosis of ICA Stenosis Degree of Stenosis (%) ICA PSV (Cm/sec) Plaque Estimate (%)* Normal <125 None <50 <125 <50 50-69 125-230 >50 >70 but < near occlusion >230 >50 Near occlusion High, low, or undetectable Visible Total occlusion Undetectable Visible, no detectable lumen *Plaque estimate (diameter reduction) with almendarez-scale and color Doppler US Degree of Stenosis (%) ICA/CCA PSV Ratio ICA EDV (cm/sec) Normal <2.0 <40 <50 <2.0 <40 50-69 2.0-4.0 40-100 >70 but < near occlusion >4.0 >100 Near occlusion Variable Variable Total occlusion Not applicable Not applicable Electronically signed by: Lucy Mesa MD (11/28/2020 3:27 PM) [id number]
--- NOTE | 2020-11-28 15:33 | RAD ---
EXAM: MRI BRAIN WO 11/28/2020 1:32 PM CLINICAL INDICATION: Stroke COMPARISON: CT head 11/27/2020 TECHNIQUE: Multiplanar multisequence MR images of the brain without contrast FINDINGS: No restricted diffusion to suggest acute or recent infarct. Ventricles and sulci are promi nent. There is mild periventricular T2 hyperintense white matter. No intracranial hemorrhage or extra -axial fluid collection. Paranasal sinuses and mastoid air cells are clear. No abnormal susceptibilit y. Globes and orbits are intact. IMPRESSION: No acute infarct or other acute abnormality. Electronically signed by: Lucy Mesa MD (11/28/2020 3:31 PM) [id number]
[2020-11-28 18:03] VITALS: BP 133/64
--- NOTE | 2020-11-28 20:46 | EKG ---
[facility] [address] [place] [address] Test Date: 2020-11-28 Test Time: 12:10:08 Pat Name: LORENZO DONALD Department: Room: 260 1 Gender: M Medication Coordinator: : 1940 Requested By: JAQUAN CHEN Order Number: [id number] Reading MD: Measurements Intervals [place] Rate: 45 P: WI: QRS: -23 QRSD: 92 T: 42 QT: 448 QTc: 390 Interpretive Statements IRREGULAR RHYTHM, NO P-WAVE FOUND LEFTWARD AXIS QRS(T) CONTOUR ABNORMALITY CONSIDER ANTEROSEPTAL MYOCARDIAL DAMAGE POSSIBLY ABNORMAL ECG RI6.01 No previous ECG available for comparison
[2020-11-28] MEDS ORDERED: ATORVASTATIN CALCIUM 10 MG TABLET. PO SCH (21:00)
[2020-11-28 22:42] VITALS: BP 146/68
[2020-11-29 00:13] LABS: HEMOGLOBIN A1C 6.1 % (4.8-5.6)
[2020-11-29 03:23] VITALS: BP 146/72
[2020-11-29 07:00] VITALS: BP 145/59
[2020-11-29] MEDS ORDERED: METOPROLOL TART IMMED RELEASE 25 MG TABLET. PO SCH (09:00)
[2020-11-29] MEDS: ASPIRIN ENTERIC COATED 325 MG TABLET.DR. PO SCH (09:18)
[2020-11-29] MEDS: ENOXAPARIN 40 MG/0.4 ML SYRINGE. SQ SCH (09:19)
--- NOTE | 2020-11-29 10:55 | PDOC ---
[facility] PROGRESS NOTE Date of Service DOS: DATE: 11/29/20 TIME: 10:54 Chief Complaint Chief Complaint TIA History AR HTN HLD Prediabetes -A1c 6.1. Should not start Metformin in patients over age 80. Diet control was recommended. Plan: Will place consultation to neurology Lipid panel, vitamin B12 pending Resume home medications FEN - Cardiac diet PPX - Lovenox FULL CODE Dispo - inpatient for above Advance Care Planning: Total time spent [id number] with patient 16 minutes in discussion with goals of care, comfort care, end-of-life care, pain management, code status; patient names is (Mariela Yoder) as surrogate decision- maker. History of Present Illness History of Present Illness Patient is a 80-year-old male with past medical history AR, who presents to the ED with complaints of slurred speech, global weakness, and altered mental status that began last night around 1999.. Patient states these symptoms have been intermittent over the past 6 months and spontaneously resolve, but most recent episode seems to have the lasted the longest. He did have a similar episode several weeks ago that was secondary to urinary tract infection, which was treated with Augmentin. He lives at home with his , and at the time of my evaluation states he feels his symptoms have resolved. He smokes cigars regularly, and denies any family history of CVA or TIA. Labs on admission showed CBG 104, and troponin <0.017, UA negative. Chest x-ray showed no acute process, and CT head showed mild cerebral volume loss and mild chronic small vessel ischemic disease. Will admit patient for further medical management. Underwent MRI and carotid Dopplers which were negative. His symptoms have resolved. Willing to go home. He is awaiting echocardiogram prior to discharge. Hemoglobin A1c returned at 6.1. Counseled on treatment of prediabetes Vitals/I&O Vitals/I&O: Vital Signs Date Time Temp Pulse Resp B/P (MAP) Pulse Ox O2 Delivery O2 Flow Rate FiO2 11/29/20 09:19 56 145/59 11/29/20 08:00 Room Air 11/29/20 07:00 98.1 17 97 98.1 I & O 11/28/20 11/28/20 11/29/20 15:00 23:00 07:00 Intake Total 200 ml 0 ml Balance 200 ml 0 ml Physical Exam Lungs: Clear Assessment and Plan Assessmemt and Plan Problems Medical Problems: (1) Altered mental status Status: Acute (2) Slurred speech Status: Acute (3) TIA (transient ischemic attack) Status: Acute (4) Weakness Status: Acute Comment Review of Relevant I have reviewed the following items kayla (where applicable) has been applied. Medications: Current Medications Medications (Trade) Dose Ordered Sig/Bella Route PRN Reason Start Time Stop Time Status Last Admin Dose Admin Atorvastatin Calcium (Lipitor) 10 mg HS PO 11/28/20 21:00 11/28/20 21:07 Justifications for Admission Other Justification DANNY GUPTA MD Nov 29, 2020 10:55
[2020-11-29 11:09] VITALS: BP 146/59
--- NOTE | 2020-11-29 11:49 | NUR ---
SS following for discharge planning. SS reviewed pt chart and discussed with pt RN. Pt is from home and is currently on room air. Discharge order on the chart for home with self care.
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
[2020-11-29 15:00] VITALS: BP 133/52
--- NOTE | 2020-11-29 15:17 | PDOC ---
PROGRESS NOTES Date of Service DATE: 11/29/20 TIME: 15:14 Assessment Problems Medical Problems: (1) Altered mental status Status: Acute (2) Slurred speech Status: Acute (3) TIA (transient ischemic attack) Status: Acute (4) Weakness Status: Acute Kvng Yoder is an 80-year-old man who had neurologic symptoms yesterday. His symptoms have fully resolved. Investigation with an MRI brain did not reveal evidence for stroke. Carotid Doppler did not reveal significant stenosis. He is back to his usual self without any confusion, imbalance or dysarthria. Echocardiogram has been performed but the result is pending. In discussion with Dr. Davey it seems that the beta-taylor may be causing difficulty. He seems to become symptomatic when his pulse goes below 50. Dr. Davey plans on not resuming the beta-taylor. I discussed with the patient and that they should monitor his blood pressure at home and explained the proper technique for doing so. He may be dismissed from a neurologic perspective. Plan He may follow-up with neurology as an outpatient should he experience further neurologic symptoms. Subjective I feel just fine. Objective Vital Signs Date Time Temp Pulse Resp B/P (MAP) Pulse Ox O2 Delivery O2 Flow Rate FiO2 11/29/20 11:09 98.8 47 146/59 (88) 96 Room Air 98.8 11/29/20 07:00 17 Intake and Output 11/29/20 07:00 Intake Total 200 ml Balance 200 ml Intake Oral 200 ml PHYSICAL EXAM He was alert, awake and cooperative. Speech was fluent and clear. He had a good fund of recent and remote knowledge. Attention and concentration was intact. He was sitting at the side of the bed with good balance. The eyes were conjugate and face symmetric. Movements were symmetric and well coordinated. Review of Relevant I have reviewed the following items kayla (where applicable) has been applied. Labs Laboratory Tests Test 11/27/20 21:52 11/27/20 22:05 11/27/20 22:10 11/28/20 07:40 Glucose (Fingerstick) 104 mg/dL (70-99) Urine Collection Type Unknown Urine Color Yellow Urine Clarity Clear Urine pH 7.0 (<5.0-8.0) Urine Specific [place] 1.010 (1.000-1.030) Urine Protein Negative mg/dL (NEG-TRACE) Urine Glucose (UA) Negative mg/dL (NEG) Urine Ketones (Stick) Negative mg/dL (NEG) Urine Blood Negative (NEG) Urine Nitrite Negative (NEG) Urine Bilirubin Negative (NEG) Urine Urobilinogen Dipstick 0.2 mg/dL (0.2 mg/dL) Urine Leukocyte Esterase Negative (NEG) Urine RBC 0 /HPF (0-2) Urine WBC 0 /HPF (0-4) Urine Squamous Epithelial Cells Occ /LPF Urine Bacteria 0 /HPF (0-FEW) White Blood Count 6.2 x10^3/uL (4.0-11.0) Red Blood Count 4.13 x10^6/uL (4.30-5.70) Hemoglobin 13.2 g/dL (13.0-17.5) Hematocrit 38.6 % (39.0-53.0) Mean Corpuscular Volume 93 fL (79-100) Mean Corpuscular Hemoglobin 32 pg (25-35) Mean Corpuscular Hemoglobin Concent 34 g/dL (31-37) Red Cell Distribution Width 13.7 % (11.5-14.5) Platelet Count 282 x10^3/uL (140-400) Neutrophils (%) (Auto) 59 % (31-73) Lymphocytes (%) (Auto) 26 % (24-48) Monocytes (%) (Auto) 12 % (0-9) Eosinophils (%) (Auto) 2 % (0-3) Basophils (%) (Auto) 1 % (0-3) Neutrophils # (Auto) 3.7 x10^3/uL (1.8-7.7) Lymphocytes # (Auto) 1.6 x10^3/uL (1.0-4.8) Monocytes # (Auto) 0.8 x10^3/uL (0.0-1.1) Eosinophils # (Auto) 0.1 x10^3/uL (0.0-0.7) Basophils # (Auto) 0.1 x10^3/uL (0.0-0.2) Sodium Level 138 mmol/L (136-145) Potassium Level 3.6 mmol/L (3.5-5.1) Chloride Level 104 mmol/L (98-107) Carbon Dioxide Level 29 mmol/L (21-32) Anion Gap 5 (6-14) Blood Urea Nitrogen 13 mg/dL (8-26) Creatinine 1.0 mg/dL (0.7-1.3) Estimated GFR (Cockcroft-Gault) 71.7 BUN/Creatinine Ratio 13 (6-20) Glucose Level 96 mg/dL (70-99) Calcium Level 8.9 mg/dL (8.5-10.1) Phosphorus Level 2.9 mg/dL (2.6-4.7) Magnesium Level 2.4 mg/dL (1.8-2.4) Total Bilirubin 0.3 mg/dL (0.2-1.0) Aspartate Amino Transf (AST/SGOT) 11 U/L (15-37) Alanine Aminotransferase (ALT/SGPT) 16 U/L (16-63) Alkaline Phosphatase 96 U/L (46-116) Troponin I Quantitative < 0.017 ng/mL (0.000-0.055) Total Protein 7.1 g/dL (6.4-8.2) Albumin 3.3 g/dL (3.4-5.0) Albumin/Globulin Ratio 0.9 (1.0-1.7) Hemoglobin A1c 6.1 % (4.8-5.6) Triglycerides Level 100 mg/dL (0-150) Cholesterol Level 149 mg/dL (0-200) LDL Cholesterol, Calculated 85 mg/dL (0-100) VLDL Cholesterol, Calculated 20 mg/dL (0-40) Non-HDL Cholesterol Calculated 105 mg/dL (0-129) HDL Cholesterol 44 mg/dL (40-60) Cholesterol/HDL Ratio 3.4 Vitamin B12 Level 281 pg/mL (247-911) Medications Current Medications Amlodipine Besylate (Norvasc) 5 mg DAILY PO Last administered on 11/29/20at 09:19; Start 11/28/20 at 09:00 Aspirin (Ecotrin) 325 mg DAILYWBKFT PO Last administered on 11/29/20at 09:18; Start 11/28/20 at 08:00 Atorvastatin Calcium (Lipitor) 10 mg HS PO Last administered on 11/28/20at 21:07; Start 11/28/20 at 21:00 Metoprolol Tartrate (Lopressor) 25 mg BID PO Last administered on 11/28/20at 09:31; Start 11/28/20 at 09:00; Stop 11/28/20 at 17:10; Status DC Hydralazine HCl (Apresoline Inj) 10 mg PRN Q4HRS PRN IVP ELEVATED BP, SEE COMMENTS; Start 11/28/20 at 06:30 Ondansetron HCl (Zofran) 4 mg PRN Q6HRS PRN IVP NAUSEA/VOMITING 1ST CHOICE; Start 11/28/20 at 06:45 Al Hydroxide/Mg Hydroxide (Mylanta Plus Xs) 30 ml PRN Q3HRS PRN PO HEARTBURN / GAS; Start 11/28/20 at 06:45 Calcium Carbonate/ Glycine (Tums) 500 mg PRN Q3HRS PRN PO UPSET STOMACH; Start 11/28/20 at 06:45 Zolpidem Tartrate (Ambien) 5 mg PRN QHS PRN PO INSOMNIA, MAY REPEAT IN 1HR; Start 11/28/20 at 06:45 Acetaminophen/ Hydrocodone Bitart (Lortab 5/325) 1 tab PRN Q4HRS PRN PO MILD PAIN 1-3; Start 11/28/20 at 06:45 Acetaminophen (Tylenol) 650 mg PRN Q6HRS PRN PO Headaches, Temp > 101.5F; Start 11/28/20 at 06:45 Magnesium Hydroxide (Milk Of Magnesia) 2,400 mg PRN Q12HR PRN PO CONSTIPATION; Start 11/28/20 at 06:45 Enoxaparin Sodium (Lovenox 40mg Syringe) 40 mg Q24H SQ Last administered on 11/29/20at 09:19; Start 11/28/20 at 07:00 Metoprolol Tartrate (Lopressor) 25 mg DAILY PO ; Start 11/29/20 at 09:00; Stop 11/28/20 at 17:17; Status DC Active Scripts Active Atorvastatin Calcium 10 Mg Tablet 10 Mg PO HS Aspirin Ec (Aspirin) 325 Mg Tablet. 325 Mg PO DAILYWBKFT Reported Amlodipine Besylate 5 Mg Tablet 5 Mg PO DAILY Vitals/I & O Vital Sign - Last 24 Hours 11/28/20 11/28/20 11/28/20 11/28/20 16:30 17:08 18:03 18:40 Temp 97.8 97.8 Pulse 44 52 47 Resp 23 23 18 B/P (MAP) 145/66 (92) 164/77 (106) 133/64 (87) Pulse Ox 96 97 97 O2 Delivery Room Air Room Air Room Air Room Air 11/28/20 11/28/20 11/29/20 11/29/20 20:27 22:42 03:23 07:00 Temp 98.3 98.1 98.1 98.3 98.1 98.1 Pulse 47 46 56 Resp 18 18 17 B/P (MAP) 146/68 (94) 146/72 (96) 145/59 (87) Pulse Ox 95 98 97 O2 Delivery Room Air Room Air Room Air Room Air 11/29/20 11/29/20 11/29/20 08:00 09:19 11:09 Temp 98.8 98.8 Pulse 56 47 B/P (MAP) 145/59 146/59 (88) Pulse Ox 96 O2 Delivery Room Air Room Air Intake and Output 11/28/20 11/28/20 11/29/20 15:00 23:00 07:00 Intake Total 200 ml 0 ml Balance 200 ml 0 ml Justicifation of Admission Dx: Justifications for Admission: Justification of Admission Dx: Yes Altered Mental Status: Altered Mental Status CANDACE BLUM MD Nov 29, 2020 15:17
--- NOTE | 2020-11-29 16:21 | NUR ---
PT HAS DISCHARGE ORDER BUT PER RUBIA PAINTER, PT NEEDS TO SEE DR GONZALEZ BEFORE LEAVING.
--- NOTE | 2020-11-29 16:38 | CARD ---
MR#: [id number] Date of Study: 11/29/2020 Ordering Physician: CANDACE BLUM, Referring Physician: CANDACE BLUM Tech: Nelli Pantoja [facility] APPROVED REPORT EXAM: Two-dimensional and M-mode echocardiogram with Doppler and color Doppler. Other Information Quality : AverageHR: 48bpm Rhythm : NSR INDICATION CVA/TIA RISK FACTORS Hypertension 2D DIMENSIONS Left Atrium(2D)4.0 (1.6-4.0cm)IVSd1.3 (0.7-1.1cm) Aortic Root(2D)3.4 (2.0-3.7cm)LVDd5.3 (3.9-5.9cm) LVOT Diameter2.1 (1.8-2.4cm)PWd1.4 (0.7-1.1cm) LVDs2.7 (2.5-4.0cm)FS (%) 49.6 % SV110.3 ml Aortic Valve AoV Peak Rayo.201.1cm/sAoV VTI44.7cm AO Peak GR.16.2mmHgLVOT Peak Rayo.113.1cm/s AO Mean GR.7mmHgAVA (VMAX)1.95cm2 Mitral Valve MV E Lyrqzayk56.0cm/sMV DECEL ESGU590qd MV A Txulbuyp32.2cm/sE/A Ratio1.5 Tricuspid Valve TR P. Gtxfprfm290ru/sTR Peak Gr.26mmHg LEFT VENTRICLE The left ventricle is normal size. There is normal left ventricular wall thickness. The left ventricu lar systolic function is normal. Left ventricular ejection fraction of 55 to 60%. There is normal LV segmental wall motion. The left ventricular diastolic function and filling is normal for age. RIGHT VENTRICLE The right ventricle is normal size. There is normal right ventricular wall thickness. The right ventr icular systolic function is normal. ATRIA The left atrium size is normal. The right atrium size is normal. The interatrial septum is intact wit h no evidence for an atrial septal defect or patent foramen ovale as noted on 2-D or Doppler imaging. AORTIC VALVE The aortic valve is normal in structure and function. Doppler and Color Flow revealed no significant aortic regurgitation. There is no significant aortic valvular stenosis. MITRAL VALVE The mitral valve is normal in structure and function. There is no evidence of mitral valve prolapse. There is no mitral valve stenosis. Doppler and Color-flow revealed mild mitral regurgitation. TRICUSPID VALVE The tricuspid valve is normal in structure and function. Doppler and Color Flow revealed trace tricus pid regurgitation. Estimated PAP 30 mmHg. PULMONIC VALVE The pulmonary valve is normal in structure and function. GREAT VESSELS The aortic root is normal in size. PERICARDIAL EFFUSION There is no evidence of significant pericardial effusion. Critical Notification Critical Value: No <Conclusion> The left ventricle is normal size. The left ventricular systolic function is normal. Left ventricular ejection fraction of 55 to 60%. Doppler and Color Flow revealed no significant aortic regurgitation. There is no significant aortic valvular stenosis. Doppler and Color-flow revealed mild mitral regurgitation. Doppler and Color Flow revealed trace tricuspid regurgitation. Estimated PAP 30 mmHg. Negative bubble study. Signed by : Yunier Yee MD Electronically Approved : 11/29/2020 16:37:41
--- NOTE | 2020-11-29 17:14 | PDOC3 ---
Discharge Summary Visit Information Date of Admission: Nov 27, 2020 Date of Discharge: Nov 29, 2020 Admitting Diagnosis: Altered mental status, slurred speech Final Diagnosis Problems Medical Problems: (1) Altered mental status Status: Acute (2) Slurred speech Status: Acute (3) TIA (transient ischemic attack) Status: Acute (4) Weakness Status: Acute Brief Hospital Course Allergies Allergies Coded Allergies Type Severity Reaction Last Updated Verified No Known Drug Allergies 04/20/15 No Vital Signs Vital Signs Date Time Temp Pulse Resp B/P (MAP) Pulse Ox O2 Delivery O2 Flow Rate FiO2 11/29/20 15:00 98.4 54 133/52 (79) 96 Room Air 98.4 11/29/20 07:00 17 Lab Results Laboratory Tests Test 11/27/20 21:52 11/27/20 22:05 11/27/20 22:10 11/28/20 07:40 Glucose (Fingerstick) 104 mg/dL (70-99) Urine Collection Type Unknown Urine Color Yellow Urine Clarity Clear Urine pH 7.0 (<5.0-8.0) Urine Specific [place] 1.010 (1.000-1.030) Urine Protein Negative mg/dL (NEG-TRACE) Urine Glucose (UA) Negative mg/dL (NEG) Urine Ketones (Stick) Negative mg/dL (NEG) Urine Blood Negative (NEG) Urine Nitrite Negative (NEG) Urine Bilirubin Negative (NEG) Urine Urobilinogen Dipstick 0.2 mg/dL (0.2 mg/dL) Urine Leukocyte Esterase Negative (NEG) Urine RBC 0 /HPF (0-2) Urine WBC 0 /HPF (0-4) Urine Squamous Epithelial Cells Occ /LPF Urine Bacteria 0 /HPF (0-FEW) White Blood Count 6.2 x10^3/uL (4.0-11.0) Red Blood Count 4.13 x10^6/uL (4.30-5.70) Hemoglobin 13.2 g/dL (13.0-17.5) Hematocrit 38.6 % (39.0-53.0) Mean Corpuscular Volume 93 fL (79-100) Mean Corpuscular Hemoglobin 32 pg (25-35) Mean Corpuscular Hemoglobin Concent 34 g/dL (31-37) Red Cell Distribution Width 13.7 % (11.5-14.5) Platelet Count 282 x10^3/uL (140-400) Neutrophils (%) (Auto) 59 % (31-73) Lymphocytes (%) (Auto) 26 % (24-48) Monocytes (%) (Auto) 12 % (0-9) Eosinophils (%) (Auto) 2 % (0-3) Basophils (%) (Auto) 1 % (0-3) Neutrophils # (Auto) 3.7 x10^3/uL (1.8-7.7) Lymphocytes # (Auto) 1.6 x10^3/uL (1.0-4.8) Monocytes # (Auto) 0.8 x10^3/uL (0.0-1.1) Eosinophils # (Auto) 0.1 x10^3/uL (0.0-0.7) Basophils # (Auto) 0.1 x10^3/uL (0.0-0.2) Sodium Level 138 mmol/L (136-145) Potassium Level 3.6 mmol/L (3.5-5.1) Chloride Level 104 mmol/L (98-107) Carbon Dioxide Level 29 mmol/L (21-32) Anion Gap 5 (6-14) Blood Urea Nitrogen 13 mg/dL (8-26) Creatinine 1.0 mg/dL (0.7-1.3) Estimated GFR (Cockcroft-Gault) 71.7 BUN/Creatinine Ratio 13 (6-20) Glucose Level 96 mg/dL (70-99) Calcium Level 8.9 mg/dL (8.5-10.1) Phosphorus Level 2.9 mg/dL (2.6-4.7) Magnesium Level 2.4 mg/dL (1.8-2.4) Total Bilirubin 0.3 mg/dL (0.2-1.0) Aspartate Amino Transf (AST/SGOT) 11 U/L (15-37) Alanine Aminotransferase (ALT/SGPT) 16 U/L (16-63) Alkaline Phosphatase 96 U/L (46-116) Troponin I Quantitative < 0.017 ng/mL (0.000-0.055) Total Protein 7.1 g/dL (6.4-8.2) Albumin 3.3 g/dL (3.4-5.0) Albumin/Globulin Ratio 0.9 (1.0-1.7) Hemoglobin A1c 6.1 % (4.8-5.6) Triglycerides Level 100 mg/dL (0-150) Cholesterol Level 149 mg/dL (0-200) LDL Cholesterol, Calculated 85 mg/dL (0-100) VLDL Cholesterol, Calculated 20 mg/dL (0-40) Non-HDL Cholesterol Calculated 105 mg/dL (0-129) HDL Cholesterol 44 mg/dL (40-60) Cholesterol/HDL Ratio 3.4 Vitamin B12 Level 281 pg/mL (247-911) Brief Hospital Course Patient is a 80-year-old male with past medical history [place], who presents to the ED with complaints of slurred speech, global weakness, and altered mental status that began last night around 1999.. Patient states these symptoms have been intermittent over the past 6 months and spontaneously resolve, but most recent episode seems to have the lasted the longest. He did have a similar episode several weeks ago that was secondary to urinary tract infection, which was treated with Augmentin. He lives at home with his , and at the time of my evaluation states he feels his symptoms have resolved. He smokes cigars regularly, and denies any family history of CVA or TIA. Labs on admission showed CBG 104, and troponin <0.017, UA negative. Chest x-ray showed no acute process, and CT head showed mild cerebral volume loss and mild chronic small vessel ischemic disease. Will admit patient for further medical management. Underwent MRI and carotid Dopplers which were negative. His symptoms have resolved. Willing to go home. Hemoglobin A1c returned at 6.1. Counseled on treatment of prediabetes Consults: Cardiology and neurology Echocardiogram: The left ventricle is normal size. The left ventricular systolic function is normal. Left ventricular ejection fraction of 55 to 60%. Doppler and Color Flow revealed no significant aortic regurgitation. There is no significant aortic valvular stenosis. Doppler and Color-flow revealed mild mitral regurgitation. Doppler and Color Flow revealed trace tricuspid regurgitation. Estimated PAP 30 mmHg. Negative bubble study. After discussion with cardiology he has been symptomatic when he is bradycardic and with cessation of beta-taylor. His symptoms improved. He will go home duration of beta-taylor will need outpatient follow up with cardiology call [phone] [facility], [address] [place] [address]. Problem list: TIA - slurred speech, encephalopathy History [place] HTN HLD Prediabetes -A1c 6.1. Should not start Metformin in patients over age 80. Diet control was recommended. Greater than 30 minutes spent on discharge. Discharge Information Condition at Discharge: Improved Follow Up: Weeks (1) Disposition/Orders: D/C to Home Scheduled Amlodipine Besylate (Amlodipine Besylate) 5 Mg Tablet, 5 MG PO DAILY, (Reported) Entered as Reported by: Marsha Gates on 04/16/15 1120 Last Action: Continued on 11/28/20623 by HYUN ROJAS MD Aspirin (Aspirin Ec) 325 Mg Tablet.dr, 325 MG PO DAILYWBKFT, #30 Prescribed by: KATHERINE ORANTES MD on 04/24/15857 Last Action: Continued on 11/28/20623 by HYUN ROJAS MD Atorvastatin Calcium (Atorvastatin Calcium) 10 Mg Tablet, 10 MG PO HS, #30 Prescribed by: KATHERINE ORANTES MD on 04/24/15857 Last Action: Continued on 11/28/20623 by HYUN ROJAS MD Discontinued Medications Metoprolol Tartrate (Metoprolol Tartrate) 25 Mg Tablet, 25 MG PO BID, #60 Prescribed by: KATHERINE ORANTES MD on 04/24/15857 Last Action: Continued on 11/28/20623 by HYUN ROJAS MD Justicifation of Admission Dx: Justifications for Admission: Justification of Admission Dx: Yes Altered Mental Status: Altered Mental Status DANNY GUPTA MD Nov 29, 2020 17:14
--- NOTE | 2020-11-29 19:10 | NUR ---
[facility] HE[facility] MONITOR PLACED ON PT. PT WAS INSTRUCTED TO FOLLOW DIRECTIONS ON CARD TO [facility] WHEN HE GETS HOME AND POWER ON DEVICE.
--- NOTE | 2020-11-29 19:25 | NUR ---
Discharge Note: LORENZO DONALD Discharge instructions and discharge home medications reviewed with Patient and a copy given. All questions have been answered and understanding verbalized. The following instructions and handouts were given: SMOKING CESSATION, BRADYCARDIA Discontinued lines and drains: Peripheral IV intact. Patient discharged to Home or Self Care with SPOUSE via Wheelchair
== END 2020-11-29 19:24 | disposition home or self-care (01) ==
LOC: ER 21:38 → ED HOLD 23:45 → 2 SOUTH 11-28 17:36
PROVIDERS: ADMIT Family Medicine; ATTEND Family Medicine
DX: G45.9 Transient cerebral ischemic attack, unspecified (principal); E11.9 Type 2 diabetes mellitus without complications; E78.5 Hyperlipidemia, unspecified; I10 Essential (primary) hypertension; I25.10 Atherosclerotic heart disease of native coronary artery without angina pectoris; I25.2 Old myocardial infarction; I49.8 Other specified cardiac arrhythmias; G93.40 Encephalopathy, unspecified; N39.0 Urinary tract infection, site not specified; F17.290 Nicotine dependence, other tobacco product, uncomplicated; Z91.19 Patient's noncompliance with other medical treatment and regimen; Z95.1 Presence of aortocoronary bypass graft
CPT/HCPCS: 36415; 70450; 70551; 71045; 80053; 80061; 81001; 82607; 82962; 83036; 83735; 84100; 84484; 85025; 93005; 93306; 93880; 96372; 99285; G0378; J1650; G0379

== ENCOUNTER → 2021-01-04 | Outpatient (CLI) | payer BC, MEDICARE ==
[~2021-01-04] MED LIST changes: +REGADENOSON 0.4 MG/5 ML DISP.SYRIN. IV ONE
--- NOTE | 2021-01-04 16:36 | RAD ---
MR#: [id number] Date of Study: 01/04/2021 Ordering Physician: YOLIE PATEL, Referring Physician: ZINA CROCKER Tech: RT Shereen (R) (N) APPROVED REPORT Test Type: Pharmacological Stress Nurse/Tech: Ramya Mayberry RN Test Indications: CAD Cardiac History: CABG 2015, smoker, CVA Medications: See Electronic Medical Record Medical History: See Electronic Medical Record Resting ECG: SB Resting Heart Rate: 47 bpm Resting Blood Pressure: 143/63mmHg Pretest Chest Pain: None Nurse/Tech Notes Lungs CTA, S1S2 Consent: The procedure was explained to the patient in lay terms. Informed consent was witnessed. Joe eout was entered into [employer]. History and Stress Test performed by SELENE Lucero, THI (R) (N) Pharm. Details Pharmacologic stress testing was performed using 0.4mg per 5ml of regadenoson given intravenously ove r 7-10 seconds. Stress Symptoms No chest pain or symptoms. POST EXERCISE Reason for Termination: Infusion complete Max HR: 91 bpm Max Blood Pressure: 156/69mmHg Blood Pressure response to exercise: Normal blood pressure response during stress. Heart Rate response to exercise: normal response Chest Pain: No. Arrhythmia: No. ST Change: No. INTERPRETATION Stress EKG Conclusion: No evidence of stress induced EKG changes. Imaging Protocol IMAGE PROTOCOL: Rest Tc-99m/stress Tc-99m 1 day Rest: Stress: Viability: Radiopharm.Tc99m [id number] Sestamibi Dose10.4mCi 31mCi Duration 15min. 10min. Img Date 01/04/2021 01/04/2021 Inj-Img Nudw18osm. 60min. Rest Admin Site:IV - Right AntecubitalAdministrator:SELENE Lucero ARRT (R)(N) Stress Admin Site: IV - Right AntecubitalAdministrator: SELENE Lucero, THI (Kaley)(N) STRESS DATA End Diast. Vol.131.0mlAv. Heart Rate52.0bpm End Syst. Vol.52.0mlCO Index BSA0.0L/min Myocardial Hxek553.0gEject. Vofsooqi47.0% Stress Rates Pk. Fill Rate2.43EDV/secLVtime Pk. Fill 215.52msec Pk. Empty Rate2.77ESV/secLVtime Pk. Xiqcs589.50msec 1/3 Pk. Fill1.07EDV/sec Stress Scores Regional WT0.00Summed WT0.00 Regional WM0.00Summed WM8.00 LV Perfusion There is a small sized basal inferolateral fixed defect suggestive of prior infarct without any signi ficant ischemia. Wall Motion Normal wall motion, EF 60%. LV Perf. Quant 17 Seg. SSS6.00 17 Seg. SRS9.00 17 Seg. SDS1.00 Stress Defect Extent (% LAD)11.30Rest Defect Extent (% LAD)22.50Rev. Defect Extent (% LAD)0.00 Stress Defect Extent (% LCX) 65.00Rest Defect Extent (% LCX)55.00Rev. Defect Extent (% LCX)5.00 Stress Defect Extent (% RCA)0.00Rest Defect Extent (% RCA)2.20Rev. Defect Extent (% RCA)0.00 Stress Defect Extent (% AGUSTINA)18.70Rest Defect Extent (% AGUSTINA)21.30Rev. Defect Extent (% AGUSTINA)0.90 Other Information Quality:Average Risk Assessment: Low Risk Conclusion 1. No evidence of stress-induced EKG changes 2. Fixed basal inferolateral defect suggestive of prior infarct versus artifact. 3. Normal EF at 60%. 4. Low risk study overall. Signed by : Yolie Patel, Electronically Approved : 01/04/2021 16:35:59
== END ==
LOC: NM 09:27
PROVIDERS: ATTEND Internal Medicine Cardiovascular Disease
DX: I25.10 Atherosclerotic heart disease of native coronary artery without angina pectoris (principal)
CPT/HCPCS: 78452; 93017; A9500; J2785